=== PATIENT | female | born 1965 ===

== ENCOUNTER 2020-08-03 19:59 | Emergency (ER) | payer OTHER ==
[2020-08-03 20:41] VITALS: BP 135/51; PULSE 84
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
[2020-08-03] MEDS ORDERED: Acetaminophen/HYDROcodone 325-7.5 MG Tab PO STA (22:23)
== END 2020-08-03 22:44 | disposition home or self-care (01) ==
LOC: MW.ED 19:59
DX: S50.12XA Contusion of left forearm, initial encounter (principal); V49.40XA Driver injured in collision with unspecified motor vehicles in traffic accident, initial encounter; Z91.041 Radiographic dye allergy status
CPT/HCPCS: 73090; 73130; 99284; A9270; 99283